=== PATIENT | female | born 1970 | race African-American/Black ===

== ENCOUNTER 2022-08-31 15:59 | Inpatient (IN) | payer OTHER ==
[2022-08-31] MEDS ORDERED: MAGNESIUM SULFATE IN WATER 2 GM/50 ML IVPB IVPB ONE (16:15)
[2022-08-31] MEDS ORDERED: methylPREDNISolone NA SUCC 125 MG/2 ML VIAL ONE (16:15)
[2022-08-31] MEDS ORDERED: TERBUTALINE SULFATE 1 MG/1 ML VIAL SQ ONE (16:40)
[2022-08-31 16:47] LABS: VENOUS BASE EXCESS -6.9 mmol/L (-2-2); VENOUS O2 SATURATION 99.1 % (70-80); VENOUS PCO2 31.7 mmHg (38-52); VENOUS PH 7.351 (7.310-7.410)
[2022-08-31] MEDS ORDERED: MAGNESIUM SULF 50% (8.12 MEQ/2 ML-1 GM VIAL) IVPB ONE (16:53)
[2022-08-31] MEDS ORDERED: methylPREDNISolone NA SUCC 125 MG/2 ML VIAL IVPB ONE (16:54)
[2022-08-31] MEDS ORDERED: LORazepam 2 MG/ML SDV VIAL IVPUSH ONE (16:55)
[2022-08-31 17:01] LABS: HEMOGLOBIN 16.7 GM/dL (10.7-15.3); INR 1.23 (0.83-1.09); MCH 24.2 pg (25.7-33.7); MCHC 31.5 g/dl (32.0-36.0); MEAN CELL VOLUME 76.7 fl (80-96); MEAN PLT VOLUME 8.2 fl (7.5-11.1); PLATELET COUNT 597 10^3/uL (134-434); PROTHROMBIN TIME (PATIENT) 14.2 SEC (9.7-13.0); RBC 6.91 M/mm3 (3.60-5.2); RDW 19.2 % (11.6-15.6)
[2022-08-31 17:04] LABS: ACTIVATED PTT 33.4 SECONDS (25.2-36.5); ADD RBC MORPHOLOGY YES; WHITE BLOOD COUNT 45.1 K/mm3 (4.0-10.0)
[2022-08-31 17:07] LABS: LACTIC ACID 3.2 mmol/L (0.4-2.0)
[2022-08-31 17:12] LABS: CALCIUM 10.2 mg/dL (8.5-10.1)
[2022-08-31 17:13] LABS: ALBUMIN 3.1 g/dl (3.4-5.0); BLOOD UREA NITROGEN 12.4 mg/dL (7-18)
[2022-08-31 17:16] LABS: CREATININE 1.5 mg/dL (0.55-1.3)
[2022-08-31 17:17] LABS: BILIRUBIN,TOTAL 1.2 mg/dL (0.2-1)
[2022-08-31 17:18] LABS: TOT PROT 8.4 g/dl (6.4-8.2)
[2022-08-31 17:21] LABS: N-TERMINAL BNP 509.9 pg/ml (5-125)
[2022-08-31] MEDS ORDERED: RAPID SEQUENCE INTUBATION KIT NR ONE (17:26)
[2022-08-31] MEDS ORDERED: KETAMINE HCL 500 MG/10 ML VIAL ONE (17:27)
[2022-08-31] MEDS ORDERED: ROCURONIUM BROMIDE 50 MG/5 ML SYRINGE ONE (17:36)
[2022-08-31] MEDS ORDERED: SUGAMMADEX SODIUM 200 MG/2 ML VIAL IVPB ONE (17:41)
[2022-08-31] MEDS ORDERED: NOREPINEPHRINE 0.9 % NACL 8 MG/250 ML BAG IVPB SCH (17:45)
[2022-08-31 17:46] LABS: ANISOCYTOSIS 1+; MACROCYTOSIS 1+; PLATELET ESTIMATE INCREASED
[2022-08-31] MEDS ORDERED: MIDAZOLAM IN 0.9 % SOD.CHLORID 100 MG/100 ML PLAST..BAG IVPB SCH (18:00)
[2022-08-31] MEDS ORDERED: DEXMEDETOMIDINE PREMIX 400 MCG/100 ML BAG IVPB SCH (18:00)
[2022-08-31] MEDS ORDERED: PIPERACILLIN/TAZOB 4.5 GM 4.5 GM in DEXTROSE 5%-WATER 100 ML IVPB ONE (18:26)
[2022-08-31] MEDS ORDERED: VANCOMYCIN 1 GM in D5W (PRE-DOCKED) 1,000 MG/250 ML IVPB ONE (18:26)
[2022-08-31] MEDS ORDERED: LACTATED RINGERS SOLUTION 1000 ML INFUS.BAG IV ONE ×2 (18:27→21:45)
[2022-08-31] MEDS ORDERED: SODIUM CHLORIDE 0.9% 500 ML INFUS.BAG IV ONE (18:33)
[2022-08-31] MEDS ORDERED: MIDAZOLAM IN 0.9 % SOD.CHLORID 1 MG/1 ML PLAST..BAG ONE (18:36)
[2022-08-31] MEDS ORDERED: VANCOMYCIN/WATER FOR INJ (PEG) 1,000 MG/200 ML BAG IVPB ONE (18:37)
[2022-08-31] MEDS ORDERED: FENTANYL NS IVPB 500 MCG/100 ML BAG IVPB SCH (18:45)
[2022-08-31] MEDS ORDERED: NOREPINEPHRINE BITARTRATE/D5W 8 MG/250 ML BAG IVPB SCH (19:23)
[2022-08-31] MEDS ORDERED: NOREPINEPHRINE BITARTRATE/D5W 8 MG/250 ML BAG IVPB ONE (19:34)
[2022-08-31] MEDS: FENTANYL NS IVPB 500 MCG/100 ML BAG IVPB SCH (19:58)
[2022-08-31 20:21] LABS: HEMATOCRIT 47.5 % (32.4-45.2); HEMOGLOBIN 14.7 GM/dL (10.7-15.3); MCH 24.6 pg (25.7-33.7); MEAN CELL VOLUME 79.4 fl (80-96); MEAN PLT VOLUME 7.8 fl (7.5-11.1); PLATELET COUNT 453 10^3/uL (134-434); RBC 5.98 M/mm3 (3.60-5.2); RDW 19.1 % (11.6-15.6)
[2022-08-31 20:24] LABS: WHITE BLOOD COUNT 61.8 K/mm3 (4.0-10.0)
[2022-08-31 20:25] LABS: ADD RBC MORPHOLOGY YES
[2022-08-31] MEDS ORDERED: PIPERACILLIN/TAZOB 4.5 GM 4.5 GM/100 ML BAG IVPB ONE (20:27)
[2022-08-31 20:34] LABS: ALLENS TEST POSITIVE; ARTERIAL BLD GAS O2 SATURATION 99.3 % (95-98); ARTERIAL BLOOD GAS BASE EXCESS -14.8 mmol/L (-2-2); ARTERIAL BLOOD GAS PO2 256.9 mmHg (80-100)
[2022-08-31 20:35] LABS: VENT MODE A/C; VENT RATE 26
[2022-08-31 20:36] LABS: ARTERIAL BLOOD GAS pH 7.103 (7.350-7.450)
[2022-08-31 20:37] LABS: CHLORIDE 104 mmol/L (98-107); SODIUM 137 mmol/L (136-145)
[2022-08-31] MEDS ORDERED: SODIUM BICARBONATE 8.4% - 50 ML ONE (20:38)
[2022-08-31] MEDS ORDERED: SODIUM BICARBONATE 8.4% 50 MEQ/50 ML VIAL IV ONE (20:38)
[2022-08-31 20:39] LABS: ANION GAP 14 MMOL/L (8-16); BLOOD UREA NITROGEN 14.1 mg/dL (7-18); CO2 19 mmol/L (21-32); GLUCOSE,RANDOM 130 mg/dL (74-106)
[2022-08-31] MEDS ORDERED: ACETAMINOPHEN 650 MG/20.3 ML ORAL SOLUTION (CUPS) PO PRN (20:41)
[2022-08-31 20:42] LABS: CREATININE 1.8 mg/dL (0.55-1.3)
[2022-08-31 21:27] LABS: CALCIUM 8.6 mg/dL (8.5-10.1); LACTIC ACID 6.6 mmol/L (0.4-2.0)
[2022-08-31] MEDS ORDERED: VASOPRESSIN 40 UNITS/100 ML BAG IV SCH (21:45)
[2022-08-31] MEDS: methylPREDNISolone NA SUCC 40 MG/1 ML VIAL IVPUSH SCH (21:45)
[2022-08-31] MEDS ORDERED: CHLORHEXIDINE GLUCONATE 4% CLEANSER FOR DECOLONIZATION TP SCH (22:00)
[2022-08-31] MEDS: HEPARIN NA (PORCINE) 5,000 UNITS/ML 1ML VIAL SQ SCH (22:20)
[2022-08-31 22:33] LABS: ANISOCYTOSIS 1+; MACROCYTOSIS 1+; OVALOCYTE 1+; TOXIC GRANULATION 1+
[2022-08-31 22:34] LABS: PLATELET ESTIMATE ADEQUATE
[2022-08-31] MEDS: MUPIROCIN 2% TOPICAL OINTMENT FOR DECOLONIZATION NS SCH (22:56)
[2022-08-31 23:10] LABS: ARTERIAL BLD GAS O2 SATURATION 98.6 % (95-98); ARTERIAL BLOOD GAS BASE EXCESS -6.9 mmol/L (-2-2)
[2022-08-31] MEDS ORDERED: LACTATED RINGERS SOLUTION 1,000 ML/1,000 ML INFUS.BAG IV SCH (23:30)
[2022-08-31 23:45] LABS: BLOOD UREA NITROGEN 15.1 mg/dL (7-18)
[2022-08-31 23:49] LABS: CREATININE 1.7 mg/dL (0.55-1.3)
[2022-08-31 23:53] LABS: LACTIC ACID 4.2 mmol/L (0.4-2.0)
[2022-09-01] MEDS: PIPERACILLIN/TAZOB 4.5 GM 4.5 GM in DEXTROSE 5%-WATER 100 ML IVPB SCH ×2 (02:00→09:00)
[2022-09-01 02:57] VITALS: BMI 68.8
[2022-09-01] MEDS: methylPREDNISolone NA SUCC 40 MG/1 ML VIAL IVPUSH SCH ×2 (03:36→08:05)
[2022-09-01 04:39] LABS: ARTERIAL BLD GAS O2 SATURATION 98.7 % (95-98); ARTERIAL BLOOD GAS BASE EXCESS -6.6 mmol/L (-2-2); ARTERIAL BLOOD GAS PO2 143.7 mmHg (80-100); ARTERIAL BLOOD GAS pH 7.324 (7.350-7.450)
[2022-09-01 05:28] LABS: LACTIC ACID 2.8 mmol/L (0.4-2.0)
[2022-09-01] MEDS: HEPARIN NA (PORCINE) 5,000 UNITS/ML 1ML VIAL SQ SCH (05:36)
[2022-09-01 06:29] LABS: ARTERIAL BLD GAS O2 SATURATION 99.1 % (95-98); ARTERIAL BLOOD GAS BASE EXCESS -5.8 mmol/L (-2-2); ARTERIAL BLOOD GAS PO2 175.7 mmHg (80-100); ARTERIAL BLOOD GAS pH 7.353 (7.350-7.450)
[2022-09-01] MEDS: FENTANYL NS IVPB 500 MCG/100 ML BAG IVPB SCH (06:35)
[2022-09-01 06:50] LABS: VENT MODE A/C; VENT RATE 32
[2022-09-01] MEDS ORDERED: ALBUMIN HUMAN 5% 250 ML IV SOLUTION IV ONE (07:00)
[2022-09-01] MEDS ORDERED: LACTATED RINGERS SOLUTION 1,000 ML/1,000 ML INFUS.BAG IV STA (07:26)
[2022-09-01] MEDS ORDERED: BUPIVACAINE HCL/PF 0.25% (2.5MG/ML) 10 ML VIAL ONE (07:31)
[2022-09-01] MEDS ORDERED: SUCCINYLCHOLINE CHLORIDE 200 MG/10 ML SYRINGE ONE (07:35)
[2022-09-01] MEDS ORDERED: PHENYLEPHRINE HCL 10 MG/1 ML SINGLE DOSE VIAL ONE (07:35)
[2022-09-01] MEDS ORDERED: PROPOFOL 20 ML ONE (07:37)
[2022-09-01] MEDS ORDERED: ETOMIDATE 20 MG/10 ML VIAL IVPUSH ONE (07:37)
[2022-09-01 07:59] LABS: HEMATOCRIT 49.8 % (32.4-45.2); HEMOGLOBIN 15.6 GM/dL (10.7-15.3); MCH 24.3 pg (25.7-33.7); MCHC 31.4 g/dl (32.0-36.0); MEAN CELL VOLUME 77.4 fl (80-96); MEAN PLT VOLUME 7.9 fl (7.5-11.1); PLATELET COUNT 369 10^3/uL (134-434); RBC 6.43 M/mm3 (3.60-5.2); RDW 19.1 % (11.6-15.6)
[2022-09-01 08:00] LABS: WHITE BLOOD COUNT 59.9 K/mm3 (4.0-10.0)
[2022-09-01] MEDS ORDERED: VANCOMYCIN/WATER 2 GM/400 ML PREMIX BAG IVPB SCH (08:00)
[2022-09-01] MEDS: ALBUTEROL SO4 2.5/IPRATROPIUM 0.5 INH SOL 3 ML VIAL.NEB. NEB SCH ×4 (08:00→20:05)
[2022-09-01] MEDS ORDERED: ROCURONIUM BROMIDE 50 MG/5 ML SYRINGE ONE ×4 (08:41→10:20)
[2022-09-01] MEDS ORDERED: FENTANYL CITRATE/PF 50 MCG/ML VIAL ONE ×4 (09:03→09:53)
[2022-09-01] MEDS ORDERED: PANTOPRAZOLE SODIUM 40 MG VIAL IVPUSH SCH (10:00)
[2022-09-01] MEDS ORDERED: BENZOIN/ALOE VERA/STORAX/TOLU 58 ML BOTTLE ONE (10:38)
[2022-09-01] MEDS ORDERED: LACTATED RINGERS SOLUTION 1000 ML INFUS.BAG IV ONE ×2 (11:03→11:18)
[2022-09-01] MEDS ORDERED: PROPOFOL 1,000,000 MCG/100 ML VIAL IVPB SCH (11:30)
[2022-09-01] MEDS ORDERED: PIPERACILLIN/TAZOB 2.25 GM 2.25 GM in DEXTROSE 5%-WATER - 50 ML IVPB SCH (12:15)
[2022-09-01] MEDS: MUPIROCIN 2% TOPICAL OINTMENT FOR DECOLONIZATION NS SCH (12:59)
[2022-09-01] MEDS: DEXTROSE 5% IVPB SCH (13:00)
[2022-09-01] MEDS: PIPERACILLIN IVPB SCH (13:00)
[2022-09-01] MEDS: TAZOB IVPB SCH (13:00)
[2022-09-01] MEDS: PIPERACILLIN/TAZOBACTAM 4.5 GM VIAL IVPB SCH (13:00)
[2022-09-01] MEDS: WATER IVPB SCH (13:00)
[2022-09-01] MEDS: VANCOMYCIN/WATER 2 GM/400 ML PREMIX BAG IVPB SCH ×2 (13:01→13:10)
[2022-09-01] MEDS: ALBUMIN HUMAN 5% 500 ML IV SOLUTION IV SCH (13:03)
[2022-09-01 14:06] LABS: ARTERIAL BLD GAS O2 SATURATION 96.7 % (95-98); ARTERIAL BLOOD GAS PO2 96.5 mmHg (80-100); ARTERIAL BLOOD GAS pH 7.286 (7.350-7.450)
[2022-09-01 14:09] LABS: ALLENS TEST POSITIVE
[2022-09-01 14:10] LABS: PT'S TEMP 96.9
[2022-09-01 14:11] LABS: VENT MODE AC; VENT RATE 12
[2022-09-01] MEDS ORDERED: VASOPRESSIN 40 UNITS/100 ML BAG IV SCH (14:36)
[2022-09-01] MEDS ORDERED: LACTATED RINGERS SOLUTION 1,000 ML/1,000 ML INFUS.BAG IV SCH (14:36)
[2022-09-01] MEDS ORDERED: ACETAMINOPHEN 650 MG/20.3 ML ORAL SOLUTION (CUPS) PO PRN (14:36)
[2022-09-01] MEDS ORDERED: NOREPINEPHRINE BITARTRATE/D5W 8 MG/250 ML BAG IVPB SCH (14:36)
[2022-09-01] MEDS ORDERED: FENTANYL NS IVPB 500 MCG/100 ML BAG IVPB SCH (14:36)
[2022-09-01] MEDS ORDERED: FLUCONAZOLE 200 MG/NS 100 ML IVPB SCH (16:15)
[2022-09-01 16:50] LABS: HEMATOCRIT 43.4 % (32.4-45.2); HEMOGLOBIN 13.7 GM/dL (10.7-15.3); MCH 24.7 pg (25.7-33.7); MCHC 31.5 g/dl (32.0-36.0); MEAN CELL VOLUME 78.2 fl (80-96); MEAN PLT VOLUME 7.7 fl (7.5-11.1); PLATELET COUNT 272 10^3/uL (134-434); RBC 5.55 M/mm3 (3.60-5.2); RDW 18.9 % (11.6-15.6)
[2022-09-01 17:04] LABS: BLOOD UREA NITROGEN 23.6 mg/dL (7-18)
[2022-09-01 17:07] LABS: CREATININE 2.3 mg/dL (0.55-1.3)
[2022-09-01 17:24] LABS: WHITE BLOOD COUNT 45.6 K/mm3 (4.0-10.0)
[2022-09-01] MEDS ORDERED: PIPERACILLIN/TAZOB 3.375 GM 3.375 GM in DEXTROSE 5%-WATER - 50 ML IVPB SCH (18:00)
[2022-09-01 20:21] VITALS: BP 109/62; PULSE 121; RESP 24; TEMP 99.5
[2022-09-01] MEDS ORDERED: CHLORHEXIDINE GLUCONATE 4% CLEANSER FOR DECOLONIZATION TP SCH ×2 (22:00)
[2022-09-01] MEDS ORDERED: MUPIROCIN 2% TOPICAL OINTMENT FOR DECOLONIZATION NS SCH (22:00)
[2022-09-01] MEDS ORDERED: HEPARIN NA (PORCINE) 5,000 UNITS/ML 1ML VIAL SQ SCH (22:00)
[2022-09-02 01:01] LABS: ANISOCYTOSIS 2+; MACROCYTOSIS 1+
[2022-09-02 09:23] LABS: MAGNESIUM 1.8 mg/dL (1.8-2.4)
[2022-09-02 09:27] LABS: PHOSPHOROUS 4.6 mg/dL (2.5-4.9)
[2022-09-02] MEDS ORDERED: PANTOPRAZOLE SODIUM 40 MG VIAL IVPUSH SCH (10:00)
[2022-09-02] MEDS ORDERED: PIPERACILLIN/TAZOB 2.25 GM 2.25 GM in DEXTROSE 5%-WATER - 50 ML IVPB SCH (18:00)
== END 2022-09-01 20:20 | disposition short-term general hospital (02) | DRG 853 ==
LOC: JER 15:59 → JERBED 20:15 → JICU 21:15
PROVIDERS: ADMIT Internal Medicine Pulmonary Disease; ATTEND Internal Medicine Pulmonary Disease
PROC: 05HM33Z Insertion of Infusion Device into Right Internal Jugular Vein, Percutaneous Approach (ICD-10-PCS; principal; 2022-08-31)
PROC: 0BH17EZ Insertion of Endotracheal Airway into Trachea, Via Natural or Artificial Opening (ICD-10-PCS; 2022-08-31)
PROC: 5A1935Z Respiratory Ventilation, Less than 24 Consecutive Hours (ICD-10-PCS; 2022-08-31)
PROC: 03H633Z Insertion of Infusion Device into Left Axillary Artery, Percutaneous Approach (ICD-10-PCS; 2022-08-31)
PROC: 0D1E0Z4 Bypass Large Intestine to Cutaneous, Open Approach (ICD-10-PCS; 2022-09-01)
PROC: 0DTF0ZZ Resection of Right Large Intestine, Open Approach (ICD-10-PCS; 2022-09-01)
DX: A41.89 Other specified sepsis (principal); J18.9 Pneumonia, unspecified organism; J96.01 Acute respiratory failure with hypoxia; J96.02 Acute respiratory failure with hypercapnia; R65.21 Severe sepsis with septic shock; K63.1 Perforation of intestine (nontraumatic); E87.20 Acidosis, unspecified; N17.9 Acute kidney failure, unspecified; J44.0 Chronic obstructive pulmonary disease with (acute) lower respiratory infection; I24.8 Other forms of acute ischemic heart disease; Z68.44 Body mass index [BMI] 60.0-69.9, adult; K55.8 Other vascular disorders of intestine; E66.01 Morbid (severe) obesity due to excess calories; H54.8 Legal blindness, as defined in USA; D72.829 Elevated white blood cell count, unspecified
CPT/HCPCS: 0241U-QW; 36415; 36600; 71045-TC-FY; 76705-TC; 80048; 80053; 82436; 82570; 82803; 82962; 83036; 83605; 83735; 83880; 84100; 84133; 84156; 84300; 84436; 84443; 84484; 85025; 85027; 85610; 85730; 86850; 86900; 86901; 87040; 87070; 87075; 87076; 87086; 87186; 87205; 87899; 88307-TC; 93005; 93010; 93970-TC; 94002; 94640; 99285-25; G0480; J1644; J3490